=== PATIENT | female | born 1970 | race Native Hawaiian/Other Pacific Islander ===

== ENCOUNTER 2016-08-07 12:29 | Emergency (ER) | payer OTHER ==
[~2016-08-07] VITALS: Ht 162.6 cm; Wt 47.6 kg
[~2016-08-07 12:29] MED LIST: ADIPEX PO; CLON0.5T36 PO; FLUOXETINE60 MG PO; HYDR25TA60 PO; OXYB5TAB56 PO; PRAV40TA PO
[2016-08-07 12:48] VITALS: BP 120/81; TEMP 98
[2016-08-07 12:49] LABS: PLATELET COUNT 247 K/uL (152-353)
[2016-08-07 12:58] LABS: POTASSIUM 3.6 mmol/L (3.6-5.2); SODIUM 135 mmol/L (136-145)
== END 2016-08-07 15:05 | disposition left against medical advice (07) ==
LOC: ED 12:29
PROVIDERS: Specialist
DX: G40.201 Localization-related (focal) (partial) symptomatic epilepsy and epileptic syndromes with complex partial seizures, not intractable, with status epilepticus (principal); J32.0 Chronic maxillary sinusitis; F19.10 Other psychoactive substance abuse, uncomplicated
CPT/HCPCS: 36415; 36600; 51702; 80053; 80307; 81000; 82550; 82553; 82805; 83605; 83735; 84100; 84484; 85027; 96365; 96366; 99285; G0479

== ENCOUNTER 2016-08-09 15:20 | Observation (INO) | payer OTHER ==
[~2016-08-09] VITALS: Ht 162.6 cm; Wt 51.3 kg
[2016-08-09] VITALS (11 sets, daily range): BP systolic 99–124; BP diastolic 42–82; TEMP 97.3–97.9; Ht 162.6 cm; Wt 51.3 kg
[2016-08-09 16:19] LABS: PLATELET COUNT 308 K/uL (152-353)
[2016-08-09 17:04] LABS: POTASSIUM 3.9 mmol/L (3.6-5.2); SODIUM 142 mmol/L (136-145)
[2016-08-10] VITALS (17 sets, daily range): BP systolic 82–120; BP diastolic 31–80; TEMP 97.9–98.9
[2016-08-10 06:06] LABS: POTASSIUM 3.7 mmol/L (3.6-5.2); SODIUM 141 mmol/L (136-145)
[2016-08-10 06:08] LABS: PLATELET COUNT 250 K/uL (152-353)
[2016-08-11 00:10] VITALS: BP 93/50; TEMP 98.4
[2016-08-11 04:00] VITALS: BP 94/54; TEMP 97.9
[2016-08-11 05:07] LABS: PLATELET COUNT 247 K/uL (152-353)
[2016-08-11 05:46] LABS: POTASSIUM 4.1 mmol/L (3.6-5.2); SODIUM 139 mmol/L (136-145)
[2016-08-11 08:00] VITALS: BP 104/56; TEMP 98
[2016-08-11 12:00] VITALS: BP 90/52; TEMP 98.3
[2016-08-11 16:00] VITALS: BP 93/46; TEMP 98
== END 2016-08-11 16:45 | disposition home or self-care (01) ==
LOC: ED 15:20 → ICU 16:37 → MED/SURG 08-10 17:19
PROVIDERS: Emergency Medicine; ADMIT Specialist
DX: R56.9 Unspecified convulsions (principal); E03.8 Other specified hypothyroidism; G40.802 Other epilepsy, not intractable, without status epilepticus; J32.0 Chronic maxillary sinusitis; R25.8 Other abnormal involuntary movements
CPT/HCPCS: 36415; 80053; 80184; 80307; 83735; 84100; 84439; 84443; 85027; 96365; 99220; 99285; G0378; G0479; J1200; J2560; J7060

== ENCOUNTER 2016-11-17 13:24 | Outpatient (CLI) | payer OTHER ==
[2016-11-17] MEDS ORDERED: PHEN50CH2 PO (17:20)
[2016-11-17] MEDS ORDERED: CLONAZEP ODT1 MG OR (17:21)
[2016-11-17] MEDS ORDERED: CLON1TAB18 PO (17:22)
== END 2016-11-17 13:27 | disposition short-term general hospital (02) ==
LOC: AMB 13:24
DX: R45.851 Suicidal ideations (principal); R10.84 Generalized abdominal pain; T50.992A Poisoning by other drugs, medicaments and biological substances, intentional self-harm, initial encounter; Y92.098 Other place in other non-institutional residence as the place of occurrence of the external cause
CPT/HCPCS: A0425; A0427

== ENCOUNTER 2016-11-17 13:34 | Observation (INO) | payer OTHER ==
[2016-11-17] VITALS (14 sets, daily range): BP systolic 90–121; BP diastolic 57–76; TEMP 97–98.3; Ht 162.6 cm; Wt 49.9 kg
[~2016-11-17] VITALS: Ht 162.6 cm; Wt 49.9 kg
[2016-11-17 13:56] LABS: PLATELET COUNT 226 K/uL (152-353)
[2016-11-17 14:27] LABS: POTASSIUM 4.1 mmol/L (3.6-5.2); SODIUM 138 mmol/L (136-145)
[2016-11-17] MEDS ORDERED: PHEN50CH2 PO (17:20)
[2016-11-17] MEDS ORDERED: CLONAZEP ODT1 MG OR (17:21)
[2016-11-17] MEDS ORDERED: CLON1TAB18 PO (17:22)
[2016-11-18] VITALS (19 sets, daily range): BP systolic 92–128; BP diastolic 52–75; TEMP 98–98.4
[2016-11-18 08:21] LABS: PLATELET COUNT 224 K/uL (152-353)
[2016-11-18 08:29] LABS: SODIUM 137 mmol/L (136-145)
[2016-11-19] VITALS: BP 99/55
[2016-11-19 02:00] VITALS: BP 96/60
[2016-11-19 06:00] VITALS: BP 105/70
[2016-11-19 06:14] LABS: PLATELET COUNT 233 K/uL (152-353)
[2016-11-19 06:41] LABS: POTASSIUM 4.1 mmol/L (3.6-5.2); SODIUM 138 mmol/L (136-145)
[2016-11-19 09:11] VITALS: BP 102/74; TEMP 97.7
[2016-11-19 11:00] VITALS: BP 94/59
== END 2016-11-19 11:25 | disposition home or self-care (01) ==
LOC: ED 13:34 → ICU 14:30
PROVIDERS: ADMIT Emergency Medicine
DX: T39.1X2A Poisoning by 4-Aminophenol derivatives, intentional self-harm, initial encounter (principal); Y92.89 Other specified places as the place of occurrence of the external cause; J44.9 Chronic obstructive pulmonary disease, unspecified; G40.802 Other epilepsy, not intractable, without status epilepticus
CPT/HCPCS: 36415; 80053; 80185; 80307; 80320; 80329; 81000; 82962; 83735; 85027; 93005; 99220; 99285; G0378; G0479

== ENCOUNTER 2017-04-08 01:24 | Outpatient (CLI) | payer OTHER ==
[~2017-04-08 01:24] MED LIST changes: +CLON1TAB18 PO; +CLONAZEP ODT1 MG OR; +PHEN50CH2 PO
== END 2017-04-08 01:27 | disposition short-term general hospital (02) ==
LOC: AMB 01:24
DX: R10.31 Right lower quadrant pain (principal); R11.0 Nausea
CPT/HCPCS: A0425; A0427

== ENCOUNTER 2017-04-08 01:29 | Emergency (ER) | payer OTHER ==
[~2017-04-08] VITALS: Ht 162.6 cm; Wt 51.7 kg
[2017-04-08 02:10] LABS: PLATELET COUNT 277 K/uL (152-353)
[2017-04-08 02:14] LABS: POTASSIUM 3.9 mmol/L (3.6-5.2)
[2017-04-08 04:18] VITALS: BP 120/80; TEMP 98.2
== END 2017-04-08 04:23 | disposition home or self-care (01) ==
LOC: ED 01:29
PROVIDERS: Specialist
DX: N39.0 Urinary tract infection, site not specified (principal)
CPT/HCPCS: 80053; 80307; 81000; 85027; 87077; 87086; 87088; 87185; 87186; 96365; 96374; 96375; 99284; J0690; J1885; J2550

== ENCOUNTER 2018-08-01 14:26 | Outpatient (CLI) | payer OTHER ==
[2018-08-01] MEDS ORDERED: PHENYTOIN EX100 MG PO (14:43)
== END 2018-08-01 14:29 | disposition short-term general hospital (02) ==
LOC: AMB 14:26
DX: G40.802 Other epilepsy, not intractable, without status epilepticus (principal); R41.82 Altered mental status, unspecified
CPT/HCPCS: A0425; A0427

== ENCOUNTER 2018-08-01 14:35 | Emergency (ER) | payer OTHER ==
[~2018-08-01] VITALS: Ht 162.6 cm; Wt 51.7 kg
[2018-08-01 14:35] VITALS: BP 121/84; TEMP 98.2
[2018-08-01] MEDS ORDERED: PHENYTOIN EX100 MG PO (14:43)
== END 2018-08-01 14:53 | disposition home or self-care (01) ==
LOC: ED 14:35
DX: T67.5XXA Heat exhaustion, unspecified, initial encounter (principal)
CPT/HCPCS: 93005; 99281

== ENCOUNTER 2019-09-18 10:06 | Inpatient (IN) | payer OTHER ==
[~2019-09-18] VITALS: Ht 162.6 cm; Wt 53.3 kg
[~2019-09-18 10:06] MED LIST changes: +PHENYTOIN EX100 MG PO
[2019-09-18 10:12] VITALS: BP 126/83; TEMP 98.9
[2019-09-18 11:21] LABS: PLATELET COUNT 327 K/uL (152-353)
[2019-09-18 11:28] LABS: POTASSIUM 4.3 mmol/L (3.6-5.2)
[2019-09-18 17:47] VITALS: BP 100/55; TEMP 98.2; Ht 162.6 cm; Wt 53.3 kg
[2019-09-18 20:00] VITALS: BP 100/55; TEMP 98.2
[2019-09-19] VITALS: BP 98/62; TEMP 98.1
[2019-09-19 04:00] VITALS: BP 101/67; TEMP 98.1
[2019-09-19 05:34] LABS: PLATELET COUNT 246 K/uL (152-353)
[2019-09-19 05:45] LABS: POTASSIUM 4.3 mmol/L (3.6-5.2)
[2019-09-19 08:00] VITALS: BP 183/69; TEMP 97.4
[2019-09-19 12:00] VITALS: BP 120/72; TEMP 98.4
[2019-09-19 16:00] VITALS: BP 109/62; TEMP 98.2
[2019-09-19 20:00] VITALS: BP 106/74; TEMP 98.6
[2019-09-20] VITALS (7 sets, daily range): BP systolic 100–123; BP diastolic 58–75; TEMP 98.1–99.4
[2019-09-20 07:35] LABS: PLATELET COUNT 271 K/uL (152-353)
[2019-09-20 07:42] LABS: POTASSIUM 4.4 mmol/L (3.6-5.2)
[2019-09-21 04:11] VITALS: BP 105/60; TEMP 98.4
[2019-09-21 05:13] LABS: POTASSIUM 4.3 mmol/L (3.6-5.2)
[2019-09-21 05:16] LABS: PLATELET COUNT 190 K/uL (152-353)
[2019-09-21 08:00] VITALS: BP 121/76; TEMP 98.6
[2019-09-21 12:00] VITALS: BP 112/63; TEMP 98.7
[2019-09-21 16:00] VITALS: BP 114/68; TEMP 99
[2019-09-21 20:06] VITALS: BP 114/65; TEMP 99.7
== END 2019-09-21 22:47 | disposition left against medical advice (07) | DRG 603 ==
LOC: ED 10:06 → MED/SURG 15:30
PROVIDERS: Internal Medicine Endocrinology, Diabetes & Metabolism; ADMIT Family Medicine
DX: L03.114 Cellulitis of left upper limb (principal); G40.802 Other epilepsy, not intractable, without status epilepticus; Z72.0 Tobacco use; E03.8 Other specified hypothyroidism; M06.80 Other specified rheumatoid arthritis, unspecified site; F15.90 Other stimulant use, unspecified, uncomplicated; B95.62 Methicillin resistant Staphylococcus aureus infection as the cause of diseases classified elsewhere
CPT/HCPCS: 36415; 80048; 80053; 80202; 83605; 85027; 85651; 86140; 87040; 87070; 87077; 87185; 87186; 87205; 96365; 96374; 96375; 99284; J1650; J1885; J1956; J2270; J2543; J3370; J3490

== ENCOUNTER 2021-12-07 07:11 | Emergency (ER) | payer OTHER ==
[~2021-12-07] VITALS: Ht 162.6 cm; Wt 53.1 kg
[2021-12-07 07:15] VITALS: TEMP 98
[2021-12-07 07:44] LABS: PLATELET COUNT 286 K/uL (152-353)
[2021-12-07 07:52] LABS: POTASSIUM 3.9 mmol/L (3.6-5.2)
[2021-12-07 13:20] VITALS: BP 104/64
== END 2021-12-07 13:20 ==
LOC: ED 07:11
PROVIDERS: Emergency Medicine
DX: G40.909 Epilepsy, unspecified, not intractable, without status epilepticus (principal); S39.012A Strain of muscle, fascia and tendon of lower back, initial encounter; W06.XXXA Fall from bed, initial encounter; Y92.238 Other place in hospital as the place of occurrence of the external cause
CPT/HCPCS: 36415; 80053; 80307; 81025; 83735; 84484; 85027; 93005; 96374; 96375; 99284; J1953; J2060; J2405

== ENCOUNTER 2021-12-16 20:04 | Emergency (ER) | payer OTHER ==
[~2021-12-16] VITALS: Ht 162.6 cm; Wt 51.7 kg
[2021-12-16 20:04] VITALS: TEMP 99.3
[2021-12-16 20:26] LABS: PLATELET COUNT 276 K/uL (152-353)
[2021-12-16 20:31] LABS: POTASSIUM 4.2 mmol/L (3.6-5.2); SODIUM 137 mmol/L (136-145)
[2021-12-16 22:13] VITALS: BP 118/88
== END 2021-12-16 22:14 ==
LOC: ED 20:04
PROVIDERS: Emergency Medicine Emergency Medical Services
DX: G40.909 Epilepsy, unspecified, not intractable, without status epilepticus (principal); R07.89 Other chest pain
CPT/HCPCS: 36415; 80048; 80307; 82542; 83735; 84484; 85027; 93005; 96360; 96365; 99284; J1953

== ENCOUNTER 2023-03-21 19:49 | Emergency (ER) | payer OTHER ==
[~2023-03-21] VITALS: Ht 162.6 cm; Wt 51.7 kg
[~2023-03-21 19:49] MED LIST changes: +LEVE500T5 PO
[2023-03-21 19:52] VITALS: TEMP 97.4
[2023-03-21 20:50] VITALS: BP 116/78
== END 2023-03-21 21:39 ==
LOC: ED 19:49
DX: R56.9 Unspecified convulsions (principal)
CPT/HCPCS: 99281